=== PATIENT | male | born 1950 | race Caucasian/White ===

== ENCOUNTER → 2017-05-28 | Outpatient (CLI) | payer MEDICARE, OTHER ==
[~2017-05-28] MED LIST: ALLO100T PO; AMIO200T2 PO; ASPI81 PO; ATOR40TA28 PO; BENA10TA3 PO; BUDE180H IH; CARV12 PO; CITA20TA9 PO; FURO20 PO; GABA-531 PO; LEVE250T55 PO; LISI-661 PO; OMEG1CAP6 PO; QUET300T2 PO; SPIR25 PO; TIOT185 IH; TRI2515C; UREA113. TP
== END | disposition home or self-care (01) ==
LOC: RADMN 09:46
PROVIDERS: ATTEND Physical Medicine & Rehabilitation Spinal Cord Injury Medicine
DX: I67.2 Cerebral atherosclerosis (principal); G31.89 Other specified degenerative diseases of nervous system; M48.061 Spinal stenosis, lumbar region without neurogenic claudication; G93.89 Other specified disorders of brain; Z86.73 Personal history of transient ischemic attack (TIA), and cerebral infarction without residual deficits; M54.17 Radiculopathy, lumbosacral region; M41.86 Other forms of scoliosis, lumbar region
CPT/HCPCS: 70450; 72131